=== PATIENT | male | born 1990 | race Two or more races ===

== ENCOUNTER 2021-05-19 20:06 | Emergency (ER) | payer OTHER ==
[~2021-05-19] VITALS: Ht 175.3 cm; Wt 84.1 kg
[2021-05-19] MEDS ORDERED: FLUORESCEIN OPHTH TEST STRIP. OS ONE (21:00)
[2021-05-19] MEDS ORDERED: oxyCODONE IR 5 MG TABLET PO ONE (21:00)
[2021-05-19] MEDS ORDERED: TETRACAINE 0.5% OPHTH SOLUTION 4ML BOTTLE. OS ONE (21:00)
[2021-05-19 21:05] VITALS: BP 141/90
[2021-05-19] MEDS ORDERED: OXYC5CAP PO (22:29)
--- NOTE | 2021-05-19 22:30 | PHYS DOC ---
Past Medical History Past Medical History: No Pertinent History Past Surgical History: No Surgical History General Adult EDM: Chief Complaint: SHINGLES HPI: HPI: 30-year-old male presents the emergency department after he was diagnosed with shingles 2 days ago complaining of pain over the left side of his head, no decrease in his lesions since Saturday when he started Valacyclovir. He reports no vision changes, no ear pain. 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 He has not been taking any pain medicine at home. He has a at home along with a 3-year-old and has been quarantining away from the home. The patient denies nausea, vomiting, fever, chills, chest pain, shortness of breath, abdominal pain, urinary symptoms, cough, recent trauma, or any other complaints. Review of Systems: Review of Systems: ROS otherwise negative except for what was mentioned in HPI Heart Score: C/O Chest Pain: No Current Medications: Current Medications Medications (Trade) Dose Ordered Sig/Gera Start Time Stop Time Status Last Admin Dose Admin Fluorescein Sodium (Ful-Aleida) 1 strip 1X ONCE 05/19/21 21:00 05/19/21 21:16 DC 05/19/21 21:30 1 STRIP Oxycodone HCl (Roxicodone) 5 mg 1X ONCE 05/19/21 21:00 05/19/21 21:15 DC 05/19/21 21:30 5 MG Tetracaine HCl (Tetracaine) 1 drop 1X ONCE 05/19/21 21:00 05/19/21 21:16 DC 05/19/21 21:30 1 DROP Allergies: Allergies: Allergies Coded Allergies Type Severity Reaction Last Updated Verified No Known Drug Allergies 05/19/21 No Physical Exam: PE: Constitutional: No acute distress, non-toxic appearance. HENT: Vesicular lesions are present along the V1 dermatome on the left side, the orbital area is spared, there is a lesion on the nose, there is no lesions seen over the ear, or pinna Eyes: PERRLA, EOMI, conjunctiva normal, no discharge. Tetracaine and fluorescein applied, there is no viral type lesions or corneal uptake seen that is suggestive of a abrasion or sign of trauma. Neck: Normal range of motion, supple, no stridor. Cardiovascular: Heart rate regular rhythm. 2+ radial pulses Skin: Warm, dry. Extremities: No tenderness, no cyanosis, ROM intact, no edema. Neurologic: Alert and oriented X 3, normal motor function, normal sensory function, no focal deficits noted. Non ataxic gait. GCS 15. Psychologic: Affect normal, judgment normal, mood normal. Current Patient Data: Vital Signs: Vital Signs Date Time Temp Pulse Resp B/P (MAP) Pulse Ox O2 Delivery O2 Flow Rate FiO2 05/19/21 21:30 16 98 Room Air 05/19/21 21:05 98.5 75 141/90 (107) 98.5 Course & Med Decision Making: Course & Med Decision Making Examination is consistent with shingles of the V1 dermatome on the left, patient's eye does not appear to be affected at this time. I counseled him on return precautions including lesions affecting the eye eye pain or change in vi annalee. We will refer him to an echo technologist to get a repeat exam. Work note was provided and patient will be placed on narcotic pain medicine as needed. He already has valacyclovir Departure Departure Impression: Primary Impression: Shingles Disposition: 01 HOME / SELF CARE / HOMELESS Condition: STABLE Referrals: Gordy ALVAREZ MD Patient Instructions: Shingles, [id number] Additional Instructions: Please follow-up with ophthalmology for repeat ocular exam, your exam today was not suggestive of any viral type lesions in your left eye, but a repeat exam is suggested. Please return to the emergency department any further concerns you may have regarding her shingles and please see the pain medicine as needed. You have been given a prescription for oxycodone. This medication is a narcotic pain medicine, it is important for to take this medication only as needed and according to its instructions, and not to take at an increased frequency from what is prescribed. Do not mix with alcohol, drive, or operate heavy machinery while on this medication as they can be sedating. You were seen in the emergency department and your health condition was deemed not to require admission to the hospital. It is important to realize that we can only evaluate you during the time that you are in her department. Occasionally health conditions can worsen upon leaving the emergency department. If this were to happen, please return to and allow us the opportunity to re evaluate you. It is a pleasure to take care of your health needs. Return to the ER if your symptoms worsen, do not improve, or if you develop additional symptoms that are concerning to you Scripts Oxycodone Hcl (OXYCODONE HCL) 5 Mg Capsule 5 MG PO PRN Q6HRS PRN for PAIN for 3 Days, #12 TAB 0 Refills Prov: DIVYA STREETER DO 05/19/21 DIVYA STREETER DO May 19, 2021 22:30
== END 2021-05-19 22:30 | disposition home or self-care (01) ==
LOC: ER 20:06
DX: B02.9 Zoster without complications (principal)
CPT/HCPCS: 99284